=== PATIENT | female | born 1970 | race Caucasian/White ===

== ENCOUNTER 2018-11-26 08:02 | Day surgery (SDC) | payer BC ==
[2018-11-25 08:12] VITALS: BMI 46.3
--- NOTE | 2018-11-26 10:02 | HP ---
History & Physical Update - Physical Physical: No Change - Assessment Assessment: No Change - Plan Plan: No Change (h&p reviwed , no changes)
[2018-11-26] MEDS ORDERED: MIDAZOLAM HCL 2 MG/2 ML SINGLE DOSE VIAL ONE ×2 (10:04→10:41)
[2018-11-26] MEDS ORDERED: ELECTROLYTE-148 SOLN 1,000 ML IV SCH (10:15)
[2018-11-26] MEDS ORDERED: IBUPROFEN 800 MG/8 ML IJ IVPB PRN (10:15)
[2018-11-26] MEDS ORDERED: IBUPROFEN 600 MG TABLET (FP) PO PRN (10:15)
[2018-11-26] MEDS ORDERED: ONDANSETRON 4 MG/2 ML VIAL IVPUSH PRN ×2 (10:15→11:15)
[2018-11-26] MEDS ORDERED: oxyCODONE HCL 5 MG TABLET PO PRN ×2 (10:15→11:15)
[2018-11-26] MEDS ORDERED: PROPOFOL 20 ML ONE ×2 (10:44)
--- NOTE | 2018-11-26 11:07 | OP ---
Operative Note - Note: Operative Date: 11/26/18 Pre-Operative Diagnosis: menometrorrhagia, EM polyp Operation: hysteroscopy , D&C , EM polypectomy Findings: small EM polyp, em irregular Surgeon: Juan R Giang Anesthesiologist/INTERMEDIATE DESIGNER: David Mena Anesthesia: Spinal Specimens Removed: EMC, EM polyp Estimated Blood Loss (mls): 25 Operative Report Dictated: Yes
[2018-11-26] MEDS ORDERED: PROMETHAZINE HCL 25 MG/1 ML VIAL IVPB PRN (11:15)
[2018-11-26 12:02] VITALS: TEMP 98.4
[2018-11-26 14:06] VITALS: BP 137/94; PULSE 89
--- NOTE | 2018-11-26 14:56 | OP ---
DATE OF OPERATION: 11/26/2018 PREOPERATIVE DIAGNOSIS: Menometrorrhagia, endometrial polyp. POSTOPERATIVE DIAGNOSIS: Menometrorrhagia, endometrial polyp. PROCEDURE: Hysteroscopy, dilation and curettage, and endometrial polypectomy. SURGEON: Juan R Black MD ANESTHESIA: Spinal. ANESTHESIOLOGIST: David Mena MD ESTIMATED BLOOD LOSS: 25 mL. FINDING: A small endometrial polyp, endometrium irregular. OPERATION: Patient was taken to operating room under adequate spinal anesthesia. Abdomen and perineum were prepped and draped. Examination under anesthesia revealed external genitalia to be normal, vagina was normal, cervix was clean, no gross lesion. Uterus was prominent, anteverted. Adnexa, no masses were palpable. Then, with a weighted speculum in the vagina, anterior lip of the cervix was grasped with a tenaculum and then uterine cavity was sounded to 9 cm. Then cervix was slightly dilated and then hysteroscope was introduced. Visualization of endocervical canal appeared to be normal. Endometrium was irregular and several areas of hypertrophy of the endometrium, a small endometrial polyp at the fundal area of the uterus. Both cornua regions were identified. Uterine ostium was visualized. No other abnormality was found. Then endometrial polyp was removed and then D&C was done. Patient tolerated procedure well, left the OR in good condition. JUAN R BLACK M.D. /[id number]
--- NOTE | 2018-11-27 15:02 | PATH ---
Surgical Pathology Report Patient Name: MARIA VICTORIA PRECIADO [facility]. Rec. #: [id number] /Age/Gender: 1970 (Age: 48) / F Account: [id number] Location: [facility] SURGICAL Taken: 11/26/2018 Received: 11/26/2018 Reported: 11/27/2018 Physicians: Juan R Giang M.D. Specimen(s) Received ENDOMETRIAL CURETTINGS, ENDOMETRIAL POLYP Clinical History Menometrorrhagia, endometrial polyp Final Diagnosis ENDOMETRIAL CURETTINGS, ENDOMETRIAL POLYP, POLYPECTOMY, DILATION AND CURETTAGE: FRAGMENTS OF ENDOMETRIAL POLYP AND SCANT BENIGN CERVICAL TISSUE. Electronically Signed Keisha Piedra M.D. Gross Description Received in formalin labeled "endometrial curettings, endometrial polyp," is a 2.8 x 2.6 x 0.3 cm aggregate of oakes red soft tissue fragments. The formalin is filtered and the specimen is entirely submitted in 2 cassettes. /11/26/2018 saudi11/26/2018
== END 2018-11-26 14:18 | disposition home or self-care (01) ==
LOC: JASU-SURG 08:02
PROVIDERS: ATTEND Obstetrics & Gynecology
PROC: 0UJD8ZZ Inspection of Uterus and Cervix, Via Natural or Artificial Opening Endoscopic (ICD-10-PCS; 2018-11-26)
PROC: 0UB97ZX Excision of Uterus, Via Natural or Artificial Opening, Diagnostic (ICD-10-PCS; principal; 2018-11-26 09:30)
PROC: 0UDB7ZX Extraction of Endometrium, Via Natural or Artificial Opening, Diagnostic (ICD-10-PCS; 2018-11-26 09:30)
DX: N92.1 Excessive and frequent menstruation with irregular cycle (principal); N84.0 Polyp of corpus uteri
CPT/HCPCS: 84703; 88305-TC; 94760

== ENCOUNTER 2019-11-17 11:13 | Inpatient (IN) | payer BC ==
[2019-11-10 17:31] VITALS: BMI 47.8
[2019-11-17] MEDS ORDERED: HYDROmorphone HCL/PF 1 MG/ML VIAL ONE (12:15)
[2019-11-17] MEDS ORDERED: ROCURONIUM BROMIDE 50 MG/5 ML VIAL ONE (12:15)
[2019-11-17] MEDS ORDERED: PROPOFOL 20 ML ONE (12:15)
[2019-11-17] MEDS ORDERED: MIDAZOLAM HCL 2 MG/2 ML SINGLE DOSE VIAL ONE (12:15)
[2019-11-17] MEDS ORDERED: ePHEDrine SULFATE 50 MG/1 ML AMPULE ONE (13:24)
[2019-11-17] MEDS ORDERED: BUPIVACAINE HCL/PF 0.25% (2.5MG/ML) 10 ML VIAL IJ ONE ×2 (13:28→14:40)
[2019-11-17] MEDS ORDERED: ONDANSETRON 4 MG/2 ML VIAL IVPUSH PRN (14:53)
[2019-11-17] MEDS ORDERED: HYDROmorphone HCL/PF 1 MG/ML VIAL IVPB PRN (14:58)
[2019-11-17] MEDS: METOCLOPRAMIDE HCL INJECTION 10 MG/2 ML VIAL IVPUSH SCH ×2 (15:05→21:19)
--- NOTE | 2019-11-17 15:08 | OP ---
Operative Note - Note: Operative Date: 11/17/19 Pre-Operative Diagnosis: Morbid Obesity. Hypertension. Elevated Liver Function Tests Operation: Laparoscopic Vertical Sleeve Gastrectomy. Wedge Biopsy of left lobe of liver. Oversewing of Gastric Staple LIne. Diagnostic Laparoscopy Findings: Greater curve sleeve gastrectomy performed with #[address] Entire gastric staple line oversewn for control of hemostasis and tp prevent marlyn ks Wedge biopsy performed on enlarged left lobe of liver Post-Operative Diagnosis: Same as Pre-op (Hepatomegaly) Surgeon: Denny Nair Co Supervisor Grounds And Landscape: Jose Ramirez Anesthesia: General Specimens Removed: Greater curve of stomach. Wedge biopsy of left lobe of liver Estimated Blood Loss (mls): 50 Operative Report Dictated: Yes
[2019-11-17] MEDS ORDERED: FAMOTIDINE 20 MG PREMIXED IVPB IVPB ONE (15:10)
[2019-11-17 15:21] LABS: HEMATOCRIT 45.5 % (32.4-45.2); HEMOGLOBIN 15.1 GM/dl (10.7-15.3); MCH 30.9 pg (25.7-33.7); MCHC 33.2 g/dl (32.0-36.0); MEAN PLT VOLUME 8.9 fl (7.5-11.1); PLATELET COUNT 408 K/MM3 (134-434); RDW 12.1 % (11.6-15.6); WHITE BLOOD COUNT 14.7 K/mm3 (4.0-10.8)
[2019-11-17] MEDS: SODIUM CHLORIDE 1,000 ML IV SCH (15:38)
[2019-11-17 15:49] LABS: ALBUMIN 3.9 g/dl (3.4-5.0); BILIRUBIN,TOTAL 0.7 mg/dl (0.2-1); CALCIUM 9.1 mg/dl (8.5-10); CREATININE 0.8 mg/dl (0.55-1.3); POTASSIUM 3.7 mmol/L (3.5-5.1); TOT PROT 7.5 g/dl (6.4-8.2)
[2019-11-17] MEDS: HYDROmorphone HCL/PF 1 MG/ML VIAL IVPB PRN ×2 (16:31→21:21)
[2019-11-17] MEDS: FAMOTIDINE 20 MG/50 ML IVPB 20 MG/50 ML MG IVPB SCH (21:19)
[2019-11-17] MEDS ORDERED: LOSARTAN POTASSIUM 50 MG TABLET (FP) PO SCH (22:00)
[2019-11-17] MEDS ORDERED: ENOXAPARIN NA (PORCINE) 40 MG/0.4 ML DISP.SYRIN SQ SCH (22:00)
--- NOTE | 2019-11-17 22:04 | OP ---
DATE OF OPERATION: 11/17/2019 PREOPERATIVE DIAGNOSES: 1. Morbid obesity. 2. Hypertension. 3. Elevated liver function tests. POSTOPERATIVE DIAGNOSES: 1. Morbid obesity. 2. Hypertension. 3. Elevated liver function tests. 4. Hepatomegaly. PROCEDURE PERFORMED: 1. Laparoscopic vertical sleeve gastrectomy. 2. Wedge biopsy of enlarged left lobe of liver. 3. Oversewing of gastric staple line. 4. Diagnostic laparoscopy. OPERATING SURGEON: Jordin Nair MD PAPER COUNTER: Jose Ramirez MD ANESTHESIA: General. EXPECTED BLOOD LOSS: 50 mL. DISPOSITION: Patient transferred to recovery room in stable condition. OPERATIVE PROCEDURE: Patient was brought into the operating room and placed on the OR table in supine position. All precautions were taken initially including padding for the back and the feet, and Venodyne boots were placed on both lower extremities. At that point, the abdomen was prepped and draped in the usual manner. A Veress needle was placed in the left upper quadrant, and a pneumoperitoneum was established. With direct vision with the laparoscopic camera, a number 5 bladeless trocar was placed in the left upper quadrant, and through that trocar, laparoscopic camera was placed. Under direct vision, a number 15 bladeless trocar was placed in the midline in the supraumbilical position, followed by a number 5 bladeless trocar in the right upper quadrant and number 5 bladeless trocar below the left costal margin. A Justine liver retractor was placed in the epigastrium to retract the left lobe of the liver. The left lobe was noted to be extremely enlarged and difficult to retract, and the liver retractor had to be moved from one side to the other in order to get proper retraction to visualize the stomach. The patient at this time was placed in a 20-degree reverse Trendelenburg position by Anesthesia. The pylorus was noted on the distal stomach, and 6 cm were measured proximally at that point. Here, on the greater curve of the stomach, the operating surgeon lifted the stomach toward the anterior abdominal wall as the assistant front office manager surgeon retracted the gastrocolic ligament inferiorly. The LigaSure device was used to dissect the gastrocolic ligament and then the short gastric vessels off the greater curve of stomach. This continued in a superior and vertical direction until the final short gastric vessel between the superior pole of spleen and the proximal fundus was divided. At this juncture, Anesthesia advanced a number 36 bougie. This was advanced down to the distal stomach. With the bougie held along the lesser curvature, a series of disha was performed with the first two being black load disha, 6 cm in length along the bougie. This was followed by a series of purple disha, also 6 cm in length and along the bougie until the final staple was fired in the left upper quadrant, and the greater curve was now completely detached from the lesser curve. It should be noted that prior to firing each stapler, both the anterior and posterior flaherty were checked that they were equal and in the area of esophagogastric junction approximately 1 to 1.5 cm of serosa remained on the anterior and posterior surfaces. At this juncture, saline was placed around the staple line, and Anesthesia inserted air into the bougie, which showed the entire stomach distended. No signs of obstruction and no leaks were noted. Because of the risk of hemostasis in a few spots there was some mild oozing noted between the disha, the entire staple line was run with the Endo Stitch, starting from the proximal fundus all the way to the distal body or to the antrum of the stomach. Once the the staple line was oversewn the staple line appeared more complete, and better hemostasis was achieved. Attention was now directed to the enlarged left lobe of liver. A portion was found on the inferior surface, and LigaSure device was used to take a triangle shape of the liver going through the capsule and then parenchyma. This was sent off the field as specimen to Pathology. The liver parenchyma had minor oozing that was easily controlled with the electrocautery. At this juncture, the resected greater curve was removed through the number 15 trocar site, sent off the field as a specimen to Pathology with the liver biopsy. The number 15 trocar site was closed with Endoclose device to prevent internal hernia and prevent bleeding. Under direct vision, all trocars were removed, and pneumoperitoneum was released. All trocar sites received 0.25% Marcaine. Number 15 site was closed with 3-0 Vicryl in the subcutaneous tissue, and then, all trocar sites were closed with 4-0 Biosyn in subcuticular fashion. Dressings were applied. Patient awoken from anesthesia and transferred out of the operating room to the recovery room in stable condition. JORDIN NAIR M.D. [id number]
[2019-11-17 22:17] LABS: HEMATOCRIT 43.9 % (32.4-45.2); HEMOGLOBIN 14.5 GM/dl (10.7-15.3); MCH 30.7 pg (25.7-33.7); PLATELET COUNT 398 K/MM3 (134-434); RBC 4.72 M/mm3 (3.60-5.2); RDW 12.1 % (11.6-15.6)
[2019-11-17 22:24] LABS: WHITE BLOOD COUNT 21.3 K/mm3 (4.0-10.8)
[2019-11-17 22:30] LABS: ALBUMIN 3.8 g/dl (3.4-5.0); BILIRUBIN,TOTAL 0.9 mg/dl (0.2-1); CALCIUM 8.9 mg/dl (8.5-10); CREATININE 0.9 mg/dl (0.55-1.3); POTASSIUM 3.9 mmol/L (3.5-5.1); TOT PROT 7.5 g/dl (6.4-8.2)
[2019-11-18] MEDS: METOCLOPRAMIDE HCL INJECTION 10 MG/2 ML VIAL IVPUSH SCH ×3 (02:44→16:04)
[2019-11-18] MEDS: HYDROmorphone HCL/PF 1 MG/ML VIAL IVPB PRN ×2 (02:45→07:28)
[2019-11-18 08:22] LABS: ALBUMIN 3.3 g/dl (3.4-5.0); BILIRUBIN,TOTAL 0.8 mg/dl (0.2-1); CALCIUM 8.4 mg/dl (8.5-10); CREATININE 0.7 mg/dl (0.55-1.3); POTASSIUM 3.1 mmol/L (3.5-5.1); TOT PROT 6.6 g/dl (6.4-8.2)
[2019-11-18 08:47] LABS: HEMATOCRIT 38.9 % (32.4-45.2); HEMOGLOBIN 13.1 GM/dl (10.7-15.3); MCH 31.5 pg (25.7-33.7); MCHC 33.6 g/dl (32.0-36.0); MEAN CELL VOLUME 93.7 fl (80-96); MEAN PLT VOLUME 9.3 fl (7.5-11.1); PLATELET COUNT 369 K/MM3 (134-434); RBC 4.16 M/mm3 (3.60-5.2); RDW 12.3 % (11.6-15.6); WHITE BLOOD COUNT 15.4 K/mm3 (4.0-10.8)
--- NOTE | 2019-11-18 08:58 | PN ---
Progress Note (short form) - Note Progress Note: POD #1 s/p laparoscopic gastric sleeve under GETA. Doing well, no [place]/vomiting, pain controlled. Ambulating. All questions answered.
[2019-11-18] MEDS: FAMOTIDINE 20 MG/50 ML IVPB 20 MG/50 ML MG IVPB SCH (09:09)
--- NOTE | 2019-11-18 09:23 | HP ---
Admitting History and Physical - Past Medical History ...LMP: 11/04/19 - Smoking History Smoking history: Never smoked - Alcohol/Substance Use Hx Alcohol Use: No Home Medications - Allergies Allergies/Adverse Reactions: Allergies Allergy/AdvReac Type Severity Reaction Status Date / Time No Known Allergies Allergy Verified 11/17/19 11:41 - Home Medications Home Medications: Ambulatory Orders Escitalopram Oxalate [Lexapro -] 10 mg PO DAILY 11/25/18 Hydrochlorothiazide [Hctz -] 25 mg PO DAILY 11/25/18 Losartan Potassium 100 mg PO HS 11/10/19 Famotidine [Pepcid] 20 mg PO BID #60 tablet 11/17/19 Oxycodone HCl/Acetaminophen [Percocet 5-325 mg Tablet] 1 tab PO Q6H PRN #20 tablet MDD 4 11/17/19 Physical Examination Vital Signs: Vital Signs Temperature 99.1 F 11/18/19 05:00 Pulse Rate 104 H 11/18/19 08:01 Respiratory Rate 18 11/18/19 05:00 Blood Pressure 128/67 11/18/19 05:00 O2 Sat by Pulse Oximetry (%) 96 11/18/19 08:01 Labs: CBC, BMP 11/18/19 07:21 11/18/19 07:21 Problem List - Problems (1) S/P laparoscopic sleeve gastrectomy Assessment/Plan: Operative Date: 11/17/19 Pre-Operative Diagnosis: Morbid Obesity. Hypertension. Elevated Liver Function Tests Operation: Laparoscopic Vertical Sleeve Gastrectomy. Wedge Biopsy of left lobe of liver. Oversewing of Gastric Staple LIne. Diagnostic Laparoscopy Findings: Greater curve sleeve gastrectomy performed with #[address] Entire gastric staple line oversewn for control of hemostasis and tp prevent leaks Wedge biopsy performed on enlarged left lobe of liver Post-Operative Diagnosis: Same as Pre-op (Hepatomegaly) Further plan per surgery Code(s): Z98.84 - BARIATRIC SURGERY STATUS (2) Obesity Assessment/Plan: as above Code(s): E66.9 - OBESITY, UNSPECIFIED (3) HTN (hypertension) Assessment/Plan: hold HCTZ monitor bp Code(s): I10 - ESSENTIAL (PRIMARY) HYPERTENSION (4) Depression Assessment/Plan: on lexapro Code(s): F32.9 - MAJOR DEPRESSIVE DISORDER, SINGLE EPISODE, UNSPECIFIED
[2019-11-18] MEDS ORDERED: ESCITALOPRAM OXALATE 10 MG TABLET PO SCH (10:00)
[2019-11-18] MEDS: KCL 10 MEQ IVPB 10 MEQ/100 ML INFUS.BAG IVPB SCH ×2 (10:03→11:31)
[2019-11-18] MEDS ORDERED: POTASSIUM CHLORIDE TABS 10 MEQ TABLET.ER (FP) PO ONE ×2 (11:51→15:45)
[2019-11-18] MEDS ORDERED: oxyCODONE HCL 5 MG TABLET PO PRN (12:24)
[2019-11-18] MEDS ORDERED: ACETAMINOPHEN 325 MG TABLET (FP) PO PRN (12:24)
--- NOTE | 2019-11-18 12:24 | PN ---
Progress Note (short form) - Note Progress Note: POD#1 Afebrile; VSS P-98-109 BP-128/67 Pt doing well No N/V C/O pain on left side Ambulating with no difficulty P/E- Abd- midline incision with dried blood no cellulitis no hematoma Ext- no swelling, no edema - King's sign WBC-15.4 (decreased) H/H-13.1/38.9 K+-3.1 UGI- no leak, no obstruction P- PO clear liquids- 2 oz PO TID K+ replacement Ambulate as tolerated
[2019-11-18] MEDS ORDERED: SODIUM CHLORIDE 1,000 ML IV SCH (12:30)
[2019-11-18] MEDS: SODIUM CHLORIDE 1,000 ML IV SCH (16:04)
[2019-11-18 16:37] VITALS: BP 128/67; PULSE 88; TEMP 98.5
--- NOTE | 2019-11-18 18:52 | DS ---
DATE OF ADMISSION: 11/17/2019 DATE OF DISCHARGE: 11/18/2019 HISTORY OF PRESENT ILLNESS AND HOSPITAL COURSE: The patient is a 49-year-old woman who was admitted to [facility] on November 17, 2019, for elective sleeve gastrectomy surgery. Details of the procedure described in the operative note. Postoperatively, the patient was sent to recovery room, where she was stabilized and sent up to the floor on the telemetry monitoring. She remained stable overnight with moderate amount of pain that was treated with parenteral pain medicine, and also a very minor amount of nausea. Her vital signs were stable with a heart rate between 94 and 110 throughout the evening. On the morning of November 18, 2019, she was brought to the radiology department, where a Gastrografin showed no signs of leak and no signs of obstruction. She returned to her room, where she was given 2 ounces of clear liquids and tolerated well. The patient was ambulating without difficulty, though did have some minor soreness in the left side of the abdomen in the area where most of the surgery was performed. The labs were stable with hemoglobin and hematocrit initially of 15.1 and following date was 13.1 and 39. She did have a low potassium which was normal after surgery, 3.7 and 3.9; however, on the morning of November 17 it was 3.1. This was presumed due to the chronic use of diuretic agents. She was given 20 mg p.o. and 20 mg IV of potassium chloride, and it came up to 3.3 by the afternoon. The plan was to give her 20 mg p.o. upon discharge, and then to send her home on November 18, 2019, to follow up with the primary care doctor as needed, and to follow with the bariatric service in 9 days. At that time, she will have a repeat lab work performed. JORDIN THOMAS M.D. [id number]
--- NOTE | 2019-11-19 16:02 | PATH ---
Surgical Pathology Report Patient Name: MARIA VICTORIA PRECIADO Med. Rec. #: [id number] /Age/Gender: 1970 (Age: 49) / F Account: [id number] Location: [facility] MED-SURG Taken: 11/17/2019 Received: 11/17/2019 Reported: 11/19/2019 Physicians: Denny Nair M.D. Specimen(s) Received A: GREATER CURVATURE OF STOMACH B: LIVER BIOPSY Clinical History Morbid obesity Final Diagnosis A. GREATER CURVATURE OF STOMACH, LAPAROSCOPIC SLEEVE GASTRECTOMY: STOMACH SHOWING MILD CHRONIC MUCOSAL INFLAMMATION. IMMUNOSTAIN IS NEGATIVE FOR H. PYLORI ORGANISMS. B. LIVER, BIOPSY: LIVER SHOWING MODERATE STEATOSIS (~40%) WITH MILD HEPATOCYTE BALLOONING AND PATCHY MILD STEATOHEPATITIS (GRADE 1). (SEE COMMENT) TRICHROME STAIN SHOWS MILD ZONE 3 PERISINUSOIDAL FIBROSIS (STAGE 1). IRON STAIN SHOWS NO INCREASE IN STAINABLE IRON DEPOSITS. Comment: The Non-Alcoholic Steatosis (YULISSA) score is 4/8 (steatosis: 2/3; lobular inflammation: 1/3; hepatocyte balloonin/2). The fibrosis stage is 1(a)/4. Scoring interpretation: Total YULISSA score represents the sum of scores for steatosis, lobular inflammation and ballooning, and ranges from 0-8. In the reference study,YULISSA scores of 0-2 occurred in cases largely considered not diagnostic of Non-Alcoholic Steatohepatitis (CHAMPION), scores of 3-4 were evenly divided among those considered not diagnostic, borderline or positive for CHAMPION. Scores of 5-8 occurred in cases that were largely considered diagnostic of CHAMPION. Reference: Bobby Frankel. & Krissy Moy, et al; Design and validation of a histological scoring system for non-alcoholic fatty liver disease: Hepatology 41:[id number],2005. Electronically Signed Sonali Henley M.D. Gross Description A. Received in formalin, labeled "greater curvature of stomach," is a 74 gram, 18.5 x 3.0 x 2.4 cm. portion of stomach with a stapled margin of resection. The serosa is oakes-null with minimal attached fat. The mucosa is oakes-pink with normal folds. No mucosal masses are identified. Mail Deliverer sections are submitted in one cassette. B. Received in formalin labeled "liver biopsy," is a 2.0 x 1.1 x 0.6 cm oakes, irregular portion of soft tissue. The specimen is bisected and entirely submitted in one cassette. [facility]
== END 2019-11-18 16:45 | disposition home or self-care (01) | DRG 621 ==
LOC: FM/S 11:13
PROVIDERS: ADMIT Surgery; ATTEND Surgery
PROC: 0FB24ZX Excision of Left Lobe Liver, Percutaneous Endoscopic Approach, Diagnostic (ICD-10-PCS; 2019-11-17)
PROC: 0DB64Z3 Excision of Stomach, Percutaneous Endoscopic Approach, Vertical (ICD-10-PCS; principal; 2019-11-17 13:20)
DX: E66.01 Morbid (severe) obesity due to excess calories (principal); Z68.42 Body mass index [BMI] 45.0-49.9, adult; R16.0 Hepatomegaly, not elsewhere classified; I10 Essential (primary) hypertension; F32.9 Major depressive disorder, single episode, unspecified
CPT/HCPCS: 36415; 74240-TC-FY; 80053; 84132; 84703; 85027; 88305-TC; 94760